=== PATIENT | female | born 1945 | race Caucasian/White ===

== ENCOUNTER 2017-01-16 16:47 | Inpatient (IN) | payer MEDICARE ==
--- NOTE | ~2017-01-16 | DS ---
Discharge Summary [facility] [address] [place]. [address] NAME: POLINA DAMON : 49 STATUS : ADM IN [facility]#: [id number] AGE: 71 ADM/REG DATE : 01/16/17 MR#: [id number] REPORT SERV DATE: 01/19/17 DICTATED BY: Ron CRUZ DATE: 01/19/17 REPORT STATUS : Draft TRANSCRIBED BY: SIXTO DATE: 01/19/17 ADMISSION DATE: 01/16/2017 DISCHARGE DATE: 01/19/2017 DIAGNOSES AT DISCHARGE: 1. Diabetic ketoacidosis, resolved. 2. Insulin-requiring diabetes. 3. Metabolic acidosis. 4. Hypokalemia. 5. Hypophosphatemia. 6. Hypertension. CONSULTS: None. PROCEDURES: None. 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 Went to the emergency room and was found to have significant metabolic acidosis secondary to DKA. Placed in intermediate care on aggressive IV fluids, IV insulin, and electrolyte correction. The patient responded very well to treatment with the correction of her low potassium, low phosphorus, and her metabolic acidosis. The patient was transitioned from IV insulin to basal-bolus and correction insulin similar to what she was taking at home. Once her metabolic acidosis was corrected and her electrolytes were stable and she was tolerating a diet, she was felt stable to discharge home. The patient has been counseled regarding the need to not miss meals and take her insulin on a regular basis to avoid future illness. Her Levemir dose has been adjusted from 20 once a day to 20 b.i.d. She will continue her current mealtime insulin and correction insulin. She will follow up with her primary care provider in approximately two weeks. Lab work including CBC and electrolytes were normal at the time of discharge. Her last Accu-Chek was 154. Of note, greater than 30 minutes was required to reconcile discharge medications, to licensed professional counselor the patient regarding dietary and insulin adjustments, and to arrange outpatient followup. LAURA/SIXTO Ron Cruz M.D. / [id number] CC: Ron Cruz M.D.
--- NOTE | ~2017-01-16 | HP ---
History And Physical [facility] [address] [place]. [address] NAME: POLINA DAMON : 49 STATUS : ADM IN [facility]#: [id number] AGE: 71 ADM/REG DATE : 01/16/17 MR#: [id number] REPORT SERV DATE: 01/17/17 DICTATED BY: JUAN MCGARRY DATE: 01/16/17 REPORT STATUS : Draft TRANSCRIBED BY: MODL DATE: 01/16/17 DATE OF ADMISSION: 01/16/2017 CHIEF COMPLAINT: Weakness, nausea, and vomiting. HISTORY OF PRESENT ILLNESS: This is a 71-year-old female who is an insulin- dependent diabetic, who was brought to the emergency room at [facility] with high blood sugars. History is obtained from the patient, her [id number] who is at bedside, and reviewing data available on the [facility]. According to Ms. Damon and her family, she had been taking care of her who is very ill and has cancer. She had some stress going on at home due to this, and since yesterday in the afternoon, she has not eaten anything. Because she did not eat anything, she did not take her insulin either. Again, this morning, she did not have breakfast nor did she take her insulin, and by late morning, she started having nausea with vomiting and started getting weaker and weaker through the course of the day. Her hjijuort-pd-may and other family members found her laying in bed, very weak, sick to the stomach, and very high blood sugars and decided to bring her to the emergency room to be evaluated. In the emergency room, she presented with a blood sugar of 498. She had severe metabolic acidosis with diabetic ketoacidosis with an anion gap of 28. She had 80 ketones and moderate acetone as well. Her pH was 7.0, pCO2 was 17, and bicarb was 4.4 on an arterial blood gas. She was given 10 units of insulin along with a bolus of normal saline, and Hospitalist Service is asked to admit her for further evaluation and treatment. At the time of my evaluation, Ms. Damon denied any chest pain or palpitations. She had no orthopnea. She had no cough, hemoptysis, night sweats, or weight loss. She has not had any recent falls or loss of consciousness. No dysuria, fevers, or chills. She did have nausea and vomiting, which started out as clear and became dark and ended up being dark green. She did not see any blood. She denied any diarrhea. No history of recent hematemesis, hematochezia, or hematuria. No other history of recent travel or exposures other than those mentioned above. PAST MEDICAL HISTORY: Her past medical history is significant for insulin-dependent diabetes mellitus. SOCIAL HISTORY: She has never smoked, although in the past, she was exposed to secondhand smoking. She denied alcohol use or recreational drug use. She was a homemaker. FAMILY HISTORY: Noncontributory. MEDICATIONS: Medications at home were reviewed by me in the chart today and reordered by me. REVIEW OF SYSTEMS: As in history of present illness. All other systems were reviewed in detail and are quite unremarkable. History And Physical [address] [place]. [address] NAME: POLINA DAMON : 49 STATUS : ADM IN [facility]#: [id number] AGE: 71 ADM/REG DATE : 01/16/17 MR#: [id number] REPORT SERV DATE: 01/17/17 DICTATED BY: JUAN MCGARRY DATE: 01/16/17 REPORT STATUS : Draft TRANSCRIBED BY: SIXTO DATE: 01/16/17 PHYSICAL EXAMINATION: GENERAL: This is a pleasant 71-year-old lady, not in any acute distress. She is alert, awake, oriented to time, place, and person. HEENT: Her head is atraumatic and normocephalic. Pupils are equal, reacting to light and accommodating. External ocular muscles are intact. Membranes are moist and pink. Sclerae are nonicteric. NECK: Supple with no jugular venous distention, lymphadenopathy, or thyromegaly. LUNGS: Clear to auscultation with no wheezes, rubs, or crackles. HEART: Heart sounds were regular with no murmurs, rubs, or gallops. ABDOMEN: Soft and nontender. Bowel sounds are present. EXTREMITIES: Showed no cyanosis, clubbing, or edema. NEUROLOGIC: Grossly intact. No focal sensory or motor deficits. Higher functions appeared intact. VITAL SIGNS: Her vital signs today showed a temperature of 97, pulse 86, respirations 19 a minute, blood pressure was 135/83, and oxygen saturations were 100% breathing room air. LABORATORY DATA: Reviewed on the [facility] showed a pH of 7.01 on arterial blood gas, pCO2 was 18, PaO2 was 129, and bicarb was 4.4, this was on room air. CBC showed a sodium of 140, potassium was 5.2, chloride 106, and CO2 of 8. BUN was 25 with a creatinine of 1.16. Blood glucose was 498 upon presentation. She had moderate acetone in the blood troponin was 0.02 today. [place] [address], hemoglobin was 13.8, hematocrit 42, platelet count was 384, and MCV was 100.2. Urinalysis showed 80 ketones, greater than 500 glucose, otherwise, unremarkable. Films of the chest x-ray were reviewed by me on the PACS today and interpreted by me. Per my interpretation, there is normal bony architecture with no cardiomegaly. Lung cash were clear with no lobar consolidations or pleural effusions. An EKG was not done in the emergency room today. IMPRESSION: 1. Diabetic ketoacidosis. 2. Leukocytosis. 3. Acute kidney injury. 4. Insulin-dependent diabetes mellitus. PLAN: We will admit Ms. Damon to the Hospitalist Service in the Medical Intermediate Care Unit. ER physician had called band presser, Dr. Mancia, who did not feel the patient required ICU care. We will admit the patient to the intermediate care unit similar to an ICU. We will follow DKA protocol, start her on IV fluids aggressively, start her on insulin weight-based infusions per protocol as well. We will check her BNP every two to four hours and replace potassium and other electrolytes as needed. We will follow her ketones, acetone, and ABG in the morning. Please see today's orders for all the details regarding the protocol. We will also obtain cultures, start her on empiric IV antibiotics at this time. She will be on unfractionated heparin for DVT prophylaxis as well while she is here. I explained the above plans with the patient and her [id number], questions were answered, and they are agreeable to the above recommendations. History And Physical [address] [place]. [address] NAME: POLINA DAMON : 49 STATUS : ADM IN [facility]#: [id number] AGE: 71 ADM/REG DATE : 01/16/17 MR#: [id number] REPORT SERV DATE: 01/17/17 DICTATED BY: JUAN MCGARRY DATE: 01/16/17 REPORT STATUS : Draft TRANSCRIBED BY: SIXTO DATE: 01/16/17 Total time actually spent with the patient and family and critical care was 40 minutes. /SIXTO Juan Mcgarry M.D. / [id number] CC: MD Christiano Almazan M.D.
[2017-01-16 18:02] LABS: BASOPHILS 0.2 %; BASOPHILS ABSOLUTE 0.05 10/3/uL (0.0-0.16); EOSINOPHILS 0 %; HEMATOCRIT 42.1 % (36.0-48.0); HEMOGLOBIN 13.8 g/dL (12.0-16.0); IMMATURE GRANULOCYTES 0.5 %; IMMATURE GRANULOCYTES ABSOLUTE 0.11 10/3/uL (0.0-0.11); LYMPHOCYTES 8.3 %; MEAN CORPUS HGB CONC 32.8 g/dL (32.0-36.0); MEAN CORPUSCULAR HEMOGLOB 32.9 pg (26.0-34.0); MEAN CORPUSCULAR VOLUME 100.2 fL (80-100); MEAN PLATELET VOLUME 10.4 fL (9.2-13.0); MONOCYTES 2.7 %; MONOCYTES ABSOLUTE 0.58 10/3/uL (0.21-1.20); NEUTROPHILS 88.3 %; NEUTROPHILS ABSOLUTE 19.14 10/3/uL (2.02-8.40); PLATELET COUNT 384 10/3/uL (150-400); RBC DISTRIBUTION WIDTH 12.9 % (12.0-16.0)
[2017-01-16 18:06] LABS: ER CBC TAT 0 Hrs 10 Mins; MANUAL DIFF NO %; WHITE BLOOD CELLS 21.7 10/3/uL (4.5-10.5)
[2017-01-16 18:11] LABS: INTERNATIONAL NORMAL RATI 1.1 UNITS (-); PARTIAL THROMBO TIME 23.8 SEC (22.5-37.2); PROTIME (NOT ORD) 14.5 SEC (12.0-14.5)
[2017-01-16 18:22] LABS: CALCIUM, SERUM 9.3 MG/DL (8.5-10.4); CHEST PAIN PROFILE TAT 0 Hrs 26 Mins; CHLORIDE, SERUM 106 MMOL/L (96-112); CREATININE 1.16 MG/DL (0.55-1.02); GFR AFRICAN AMERICAN 56 ML/MIN (>=60); GFR NON AFRICAN AMERICAN 48 ML/MIN (>=60); SODIUM, SERUM 140 MMOL/L (135-148); TROPONIN I <0.02 NG/ML (<0.05)
[2017-01-16 18:23] LABS: BUN (BLOOD UREA NITROGEN) 25 MG/DL (6-23); CO2 (CARBON DIOXIDE) 8 MMOL/L (24-34); GLUCOSE, SERUM 498 MG/DL (60-99); POTASSIUM, SERUM 5.2 MMOL/L (3.5-5.3)
[2017-01-16 18:34] LABS: ASCORBIC ACID (UR NOT ORDER) NEG (NEG); BILIRUBIN, URINE NEGATIVE (NEG); ER URINALYSIS TAT 0 Hrs 38 Mins; KETONE, URINE 80 MG/DL (NEG); LEUKOCYTE ESTERASE(NOT OR NEG (NEG); NITRITE (URINE) NEG (NEG); WBC (NOT ORDERED) (RFLEX) 5 (0-5)
[2017-01-16 18:37] LABS: BAND NEUTROPHILS 2 %; ER DIFF TAT 0 Hrs 41 Mins; LYMPHOCYTES 10 %; LYMPHOCYTES ABSOLUTE (CALC) 2.17 10/3/uL (0.67-4.30); MACROCYTES 1+ (5-10/OIF) (0-5/OIF); MONOCYTES 10 %; MONOCYTES ABSOLUTE (CALC) 2.17 10/3/uL (0.21-1.20); NEUTROPHILS ABSOLUTE (CALC) 17.36 10/3/uL (2.02-8.40); PLATELET ESTIMATE ADQ (ADEQUATE); SEGMENTED NEUTROPHIL (0) 78 %; TOTAL NUCLEATED CELLS 100
[2017-01-16 18:38] LABS: GIANT PLATELET RARE; OVALOCYTES 1+ (3-10/OIF) (0-2/OIF); SPHEROCYTES FEW (3-10/OIF)
[2017-01-16 19:08] LABS: BE (BASE EXCESS) -25.1 MEQ/L (0 +/- 2.5); CARBOXYHEMOGLOBIN 0.8 % (0-3); HCO3 (ACTUAL BICARBONATE) 4.4 MEQ/L (23-27); INSTRUMENT SERIAL # 8087; METHEMOGLOBIN 0.4 % (0-3); O2 CONTENT 19.2 VOL% (18-24); PCO2 (CO2 TENSION) 18 MMHG (35-45); PO2 (O2 TENSION) 129 MMHG (79-93); SAMPLE Arterial; pH 7.01 (7.37-7.43)
[2017-01-16] MEDS ORDERED: RESTASIS OPH (19:33)
[2017-01-16] MEDS ORDERED: NOVOLOG SC ×2 (19:34→19:36)
[2017-01-16] MEDS ORDERED: NORV10 PO (19:35)
[2017-01-16] MEDS ORDERED: LOTE20 PO (19:35)
[2017-01-16] MEDS ORDERED: MULTIVIT/MIN PO (19:36)
[2017-01-16] MEDS ORDERED: VALTREX5 PO (19:36)
[2017-01-16] MEDS ORDERED: PREM.3B PO (19:36)
[2017-01-16] MEDS ORDERED: ASAB PO (19:36)
[2017-01-16] MEDS ORDERED: VITAMIN D2000 UNIT PO (19:37)
[2017-01-16] MEDS ORDERED: LIPITOR20 PO (19:37)
[2017-01-16] MEDS ORDERED: HARD NAILS PO (19:37)
[2017-01-16] MEDS ORDERED: LEVEMIR SC (19:38)
[2017-01-16] MEDS ORDERED: B121000P IM/SC (19:38)
[2017-01-16] MEDS ORDERED: TEARS PURE OPH (19:43)
[2017-01-16 23:21] LABS: BUN (BLOOD UREA NITROGEN) 25 MG/DL (6-23); CALCIUM, SERUM 8.5 MG/DL (8.5-10.4); CHLORIDE, SERUM 111 MMOL/L (96-112); CO2 (CARBON DIOXIDE) 10 MMOL/L (24-34); CREATININE 1.05 MG/DL (0.55-1.02); GFR AFRICAN AMERICAN 63 ML/MIN (>=60); GFR NON AFRICAN AMERICAN 54 ML/MIN (>=60); GLUCOSE, SERUM 269 MG/DL (60-99); POTASSIUM, SERUM 4.7 MMOL/L (3.5-5.3); SODIUM, SERUM 140 MMOL/L (135-148)
[2017-01-17 02:09] LABS: BUN (BLOOD UREA NITROGEN) 22 MG/DL (6-23); CALCIUM, SERUM 8.2 MG/DL (8.5-10.4); CHLORIDE, SERUM 114 MMOL/L (96-112); CREATININE 1.12 MG/DL (0.55-1.02); GFR AFRICAN AMERICAN 58 ML/MIN (>=60); GFR NON AFRICAN AMERICAN 50 ML/MIN (>=60); GLUCOSE, SERUM 231 MG/DL (60-99); POTASSIUM, SERUM 4.8 MMOL/L (3.5-5.3); SODIUM, SERUM 141 MMOL/L (135-148)
[2017-01-17 02:10] LABS: CO2 (CARBON DIOXIDE) 14 MMOL/L (24-34)
[2017-01-17 05:21] LABS: ASCORBIC ACID (UR NOT ORDER) NEG (NEG); BILIRUBIN, URINE NEGATIVE (NEG); KETONE, URINE 80 MG/DL (NEG); LEUKOCYTE ESTERASE(NOT OR TRACE (NEG); WBC (NOT ORDERED) (RFLEX) 5 (0-5)
[2017-01-17 07:11] LABS: BASOPHILS 0.1 %; BASOPHILS ABSOLUTE 0.02 10/3/uL (0.0-0.16); EOSINOPHILS 0 %; HEMOGLOBIN 12.4 g/dL (12.0-16.0); IMMATURE GRANULOCYTES 0.5 %; IMMATURE GRANULOCYTES ABSOLUTE 0.09 10/3/uL (0.0-0.11); LYMPHOCYTES 13.7 %; LYMPHOCYTES ABSOLUTE 2.67 10/3/uL (0.67-4.30); MEAN PLATELET VOLUME 10.1 fL (9.2-13.0); MONOCYTES 6.1 %; MONOCYTES ABSOLUTE 1.18 10/3/uL (0.21-1.20); NEUTROPHILS 79.6 %; NEUTROPHILS ABSOLUTE 15.53 10/3/uL (2.02-8.40); PLATELET COUNT 340 10/3/uL (150-400); RBC DISTRIBUTION WIDTH 12.8 % (12.0-16.0); RED CELL COUNT 3.76 10/6/uL (4.0-5.6); WHITE BLOOD CELLS 19.5 10/3/uL (4.5-10.5)
[2017-01-17 07:12] LABS: HEMATOCRIT 36.5 % (36.0-48.0); MANUAL DIFF NO %; MEAN CORPUSCULAR VOLUME 97.1 fL (80-100)
[2017-01-17 07:15] LABS: ACETONE SMALL
[2017-01-17 07:29] LABS: A/G RATIO 1.2 (0.7-1.9); ALKALINE PHOSPHATASE 101 U/L (45-117); CALCIUM, SERUM 8.4 MG/DL (8.5-10.4); CHLORIDE, SERUM 115 MMOL/L (96-112); CO2 (CARBON DIOXIDE) 16 MMOL/L (24-34); CREATININE 0.97 MG/DL (0.55-1.02); GFR AFRICAN AMERICAN 69 ML/MIN (>=60); GFR NON AFRICAN AMERICAN 60 ML/MIN (>=60); GLOBULIN 2.8 G/DL (2.5-4.1); PHOSPHORUS, SERUM 1.7 MG/DL (2.5-4.5); POTASSIUM, SERUM 3.9 MMOL/L (3.5-5.3); SGOT(AST) 21 U/L (5-40); SGPT(ALT) 21 U/L (5-65); SODIUM, SERUM 141 MMOL/L (135-148); TOTAL BILIRUBIN 0.4 MG/DL (0-1.2); TOTAL PROTEIN 6.2 G/DL (6.0-8.5)
[2017-01-17 07:30] LABS: ALBUMIN 3.4 G/DL (3.5-5.0); BUN (BLOOD UREA NITROGEN) 17 MG/DL (6-23); GLUCOSE, SERUM 183 MG/DL (60-99)
[2017-01-17 10:38] LABS: BUN (BLOOD UREA NITROGEN) 16 MG/DL (6-23); CALCIUM, SERUM 8.3 MG/DL (8.5-10.4); CHLORIDE, SERUM 115 MMOL/L (96-112); CO2 (CARBON DIOXIDE) 17 MMOL/L (24-34); CREATININE 0.95 MG/DL (0.55-1.02); GFR AFRICAN AMERICAN 71 ML/MIN (>=60); GFR NON AFRICAN AMERICAN 61 ML/MIN (>=60); POTASSIUM, SERUM 3.6 MMOL/L (3.5-5.3); SODIUM, SERUM 142 MMOL/L (135-148)
[2017-01-17 10:40] LABS: GLUCOSE, SERUM 133 MG/DL (60-99)
[2017-01-18 04:14] LABS: BASOPHILS 0.1 %; BASOPHILS ABSOLUTE 0.02 10/3/uL (0.0-0.16); EOSINOPHILS 0.1 %; EOSINOPHILS ABSOLUTE 0.02 10/3/uL (0.0-0.53); HEMATOCRIT 34.5 % (36.0-48.0); HEMOGLOBIN 11.8 g/dL (12.0-16.0); IMMATURE GRANULOCYTES 0.3 %; IMMATURE GRANULOCYTES ABSOLUTE 0.04 10/3/uL (0.0-0.11); LYMPHOCYTES 22.2 %; LYMPHOCYTES ABSOLUTE 3.03 10/3/uL (0.67-4.30); MEAN CORPUS HGB CONC 34.2 g/dL (32.0-36.0); MEAN CORPUSCULAR HEMOGLOB 32.4 pg (26.0-34.0); MEAN CORPUSCULAR VOLUME 94.8 fL (80-100); MEAN PLATELET VOLUME 10.2 fL (9.2-13.0); MONOCYTES 4.8 %; MONOCYTES ABSOLUTE 0.65 10/3/uL (0.21-1.20); NEUTROPHILS 72.5 %; NEUTROPHILS ABSOLUTE 9.89 10/3/uL (2.02-8.40); PLATELET COUNT 299 10/3/uL (150-400); RBC DISTRIBUTION WIDTH 13.3 % (12.0-16.0); RED CELL COUNT 3.64 10/6/uL (4.0-5.6); WHITE BLOOD CELLS 13.7 10/3/uL (4.5-10.5)
[2017-01-18 04:19] LABS: MANUAL DIFF NO %
[2017-01-18 04:41] LABS: CALCIUM, SERUM 8.1 MG/DL (8.5-10.4); CHLORIDE, SERUM 117 MMOL/L (96-112); CO2 (CARBON DIOXIDE) 18 MMOL/L (24-34); GFR AFRICAN AMERICAN 76 ML/MIN (>=60); GFR NON AFRICAN AMERICAN 65 ML/MIN (>=60); POTASSIUM, SERUM 4.1 MMOL/L (3.5-5.3); SODIUM, SERUM 145 MMOL/L (135-148)
[2017-01-18 04:45] LABS: BUN (BLOOD UREA NITROGEN) 9 MG/DL (6-23); GLUCOSE, SERUM 197 MG/DL (60-99)
[2017-01-18 04:46] LABS: PHOSPHORUS, SERUM 0.9 MG/DL (2.5-4.5)
[2017-01-19 05:58] LABS: BASOPHILS 0.4 %; BASOPHILS ABSOLUTE 0.03 10/3/uL (0.0-0.16); EOSINOPHILS 0.7 %; EOSINOPHILS ABSOLUTE 0.06 10/3/uL (0.0-0.53); HEMATOCRIT 34.8 % (36.0-48.0); HEMOGLOBIN 11.9 g/dL (12.0-16.0); IMMATURE GRANULOCYTES 0.2 %; IMMATURE GRANULOCYTES ABSOLUTE 0.02 10/3/uL (0.0-0.11); LYMPHOCYTES 31.8 %; LYMPHOCYTES ABSOLUTE 2.66 10/3/uL (0.67-4.30); MEAN CORPUS HGB CONC 34.2 g/dL (32.0-36.0); MEAN CORPUSCULAR HEMOGLOB 32.6 pg (26.0-34.0); MEAN CORPUSCULAR VOLUME 95.3 fL (80-100); MEAN PLATELET VOLUME 10.3 fL (9.2-13.0); MONOCYTES 6.1 %; MONOCYTES ABSOLUTE 0.51 10/3/uL (0.21-1.20); NEUTROPHILS 60.8 %; NEUTROPHILS ABSOLUTE 5.09 10/3/uL (2.02-8.40); PLATELET COUNT 266 10/3/uL (150-400); RBC DISTRIBUTION WIDTH 13.2 % (12.0-16.0); RED CELL COUNT 3.65 10/6/uL (4.0-5.6); WHITE BLOOD CELLS 8.4 10/3/uL (4.5-10.5)
[2017-01-19 06:05] LABS: MANUAL DIFF NO %
[2017-01-19 06:09] LABS: BUN (BLOOD UREA NITROGEN) 6 MG/DL (6-23); CALCIUM, SERUM 8.5 MG/DL (8.5-10.4); CHLORIDE, SERUM 112 MMOL/L (96-112); CO2 (CARBON DIOXIDE) 22 MMOL/L (24-34); CREATININE 0.58 MG/DL (0.55-1.02); GFR AFRICAN AMERICAN 109 ML/MIN (>=60); GFR NON AFRICAN AMERICAN 94 ML/MIN (>=60); GLUCOSE, SERUM 176 MG/DL (60-99); PHOSPHORUS, SERUM 2.1 MG/DL (2.5-4.5); POTASSIUM, SERUM 3.8 MMOL/L (3.5-5.3); SODIUM, SERUM 146 MMOL/L (135-148)
[2017-01-19 06:45] LABS: ASCORBIC ACID (UR NOT ORDER) NEG (NEG); BILIRUBIN, URINE NEGATIVE (NEG); KETONE, URINE NEGATIVE (NEG); LEUKOCYTE ESTERASE(NOT OR LARGE (NEG); WBC (NOT ORDERED) (RFLEX) 131 (0-5)
[2017-01-19] MEDS ORDERED: LEVEMIR SC (10:15)
[2017-04-04] MEDS ORDERED: LOTE20 PO (14:43)
== END 2017-01-19 11:29 | disposition home health service (06) | DRG 638 ==
LOC: ER 16:47 → IMCU 19:56 → 7NO 01-18 22:20
PROVIDERS: Emergency Medicine; Hospitalist; Internal Medicine
DX: E13.10 Other specified diabetes mellitus with ketoacidosis without coma (principal); N17.9 Acute kidney failure, unspecified; E87.6 Hypokalemia; E83.39 Other disorders of phosphorus metabolism; I10 Essential (primary) hypertension; Z79.4 Long term (current) use of insulin; Z77.22 Contact with and (suspected) exposure to environmental tobacco smoke (acute) (chronic)
CPT/HCPCS: 36600; 71010; 80048; 80053; 81001; 82009; 82805; 82962; 83605; 83735; 84100; 84484; 85025; 85610; 85730; 87040; 87070; 87086; 87205; 87641; 93005; 96374; 96375; 99285; A9270-GY; C9113; J2405; J3480